=== PATIENT | female | born 2000 | race Caucasian/White ===

== ENCOUNTER 2023-04-16 15:53 | Emergency (ER) | payer OTHER ==
[~2023-04-16] VITALS: Ht 170.2 cm; Wt 103.4 kg
[2023-04-16 16:01] VITALS: BP_SYST 136; PULSE 95; RESP 17; TEMP 99; O2SAT 99
[2023-04-16 19:11] VITALS: BP_SYST 136; PULSE 95; RESP 17; TEMP 99; O2SAT 99
== END 2023-04-16 19:10 | disposition left against medical advice (07) ==
LOC: SED 15:53
DX: O9A.212 Injury, poisoning and certain other consequences of external causes complicating pregnancy, second trimester (principal); Z3A.14 14 weeks gestation of pregnancy; Z53.21 Procedure and treatment not carried out due to patient leaving prior to being seen by health care provider
CPT/HCPCS: 76805-TC; 99281